=== PATIENT | male | born 1965 | race Caucasian/White ===

== ENCOUNTER 2017-04-27 07:58 | Day surgery (SDC) | payer BC ==
[2017-04-27] MEDS ORDERED: LACTATED RINGERS 1,000 ML IV ONE (08:37)
[2017-04-27 08:47] VITALS: TEMP 97.1
[2017-04-27] MEDS ORDERED: LIDOCAINE 1% 20 ML VIAL (10MG/ML) FOR IV START INTRADERMA ONE (08:52)
[2017-04-27] MEDS ORDERED: LIDOCAINE 1% INJ 10MG/ML (20 ML MDV) ONE (08:55)
[2017-04-27] MEDS ORDERED: PROPOFOL 10 MG/ML 20 ML VIAL IV ONE (08:55)
--- NOTE | 2017-04-27 09:18 | P.OP ---
Date of Procedure: 04/27/17 Preoperative Diagnosis: Screening for colon cancer Postoperative Diagnosis: Normal colon Procedure(s) Performed: Colonoscopy Implants: Anesthesia: GETA Pathology: other Indications for Procedure: Operative Findings: Description of Procedure: The patient was brought to the endoscopy suite and placed in lateral decubitus position. IV sedation was given as per anesthesia team. A timeout was performed to verify correct patient and correct procedure.Perianal examination did not reveal any external hemorrhoids. Digital rectal examination was performed. Normal prostate. A well-lubricated endoscope was passed per rectally and was gradually advanced beyond the sigmoid colon, splenic flexure, transverse colon, hepatic flexure and cecum. The ileocecal valve was visualized. The cecum beyond the ileocecal valve was difficult to intubate no diverticulosis or diverticulitis. Scope was withdrawn all mucosal surfaces were inspected There were no polyps. There were no masses are best malformations. The scope was gradually withdrawn. Patient tolerated the procedure well and was taken to post anesthesia care unit in stable condition. Recommend repeat colonoscopy in 5 years Plan - Discharge Summary New Discharge Prescriptions: No Action Labetalol HCl 600 mg PO BID amLODIPine BESYLATE/BENAZEPRIL [amLODIPine BESYLATE/BENAZEPRIL 10-20 mg] 1 cap PO DAILY Multivitamin [Men's Multi-Vitamin] 1 each PO DAILY Aspirin [Adult Low Dose Aspirin EC] 81 mg PO BID Discharge Medication List Aspirin [Adult Low Dose Aspirin EC] 81 mg PO BID 04/27/17 [History] Labetalol HCl 600 mg PO BID 04/27/17 [History] Multivitamin [Men's Multi-Vitamin] 1 each PO DAILY 04/27/17 [History] amLODIPine BESYLATE/BENAZEPRIL [amLODIPine BESYLATE/BENAZEPRIL 10-20 mg] 1 cap PO DAILY 04/27/17 [History]
[2017-04-27 09:25] VITALS: RESP 18
[2017-04-27 10:00] VITALS: BP 156/98; PULSE 54
== END 2017-04-27 10:12 | disposition home or self-care (01) ==
LOC: ORWHC2ENDO 07:58
PROVIDERS: ATTEND Surgery
DX: Z12.11 Encounter for screening for malignant neoplasm of colon (principal); I10 Essential (primary) hypertension; G47.33 Obstructive sleep apnea (adult) (pediatric); Z79.82 Long term (current) use of aspirin; Z79.899 Other long term (current) drug therapy
CPT/HCPCS: J2001; J2704; G0121

== ENCOUNTER → 2017-10-24 | Outpatient (CLI) | payer BC ==
--- NOTE | 2017-10-24 11:01 | US ---
EXAMINATION TYPE: US renal artery duplex complete DATE OF EXAM: 10/24/2017 COMPARISON: NONE CLINICAL HISTORY: I10 Hypertension. Controlled HTN for 10+ years MEASUREMENTS: RENAL SIZE: Rt Kidney: 11.8 x 6.1 x 5.4cm Lt Kidney: 12.1 x 6.8 x 5.2cm RESISTANCE INDEX Right: 0.57 Left: 0.62 RA/AO RATIO (< 3.5 ) Right: 1.1 Left: 1.0 RA VELOCITY ( < 180 cm/s) Right: 119.7cm/s Left: 106.3cm/s Technical limitations due to large amount of overlying bowel content. Visualized portions of aorta sh ow no evidence of AAA. Kidneys show no evidence of hydronephrosis. Cortical medullary differentiation is maintained. No cortical renal thinning. No evidence of renal artery stenosis. Good upstroke at se gmentals at renal hilum. Low resistive waveforms noted throughout. IMPRESSION: 1. No evidence of renal arterial stenosis. 2. No sonographic evidence of medical renal disease, hydronephrosis or nephrolithiasis.
== END | disposition home or self-care (01) ==
LOC: RADUSMAIN 09:22
PROVIDERS: ATTEND Family Medicine
DX: I10 Essential (primary) hypertension (principal)
CPT/HCPCS: 93975